=== PATIENT | female | born 1990 | race African-American/Black ===

== ENCOUNTER 2017-08-11 00:15 | Emergency (ER) | payer MEDICAID ==
[~2017-08-11] VITALS: Ht 172.7 cm; Wt 95.3 kg
[2017-08-11 00:25] VITALS: BP 130/82
[2017-08-11] MEDS ORDERED: Morphine Sulfate 4mg/ml Inj IM ONE (00:45)
--- NOTE | 2017-08-11 00:48 | Emergency Room Report ---
History of Present Illness General Chief Complaint: Lower Extremity Injury Source: Patient Present Illness HPI 26-year-old female, presenting with right ankle pain, fell and twisted it while rollerskating. No head trauma no LOC. Complaining of pain to the medial ankle Allergies: Coded Allergies: No Known Allergies (Unverified , 08/11/17) Patient History Past Medical History: see triage record Past Surgical History: none Pertinent Family History: none Last Menstrual Period: jul 08 Now: No Reviewed Nursing Documentation: PMH: Agreed, PSxH: Agreed Nursing Documentation-PMH Past Medical History: No Stated History Review of Systems All Other Systems: negative except mentioned in HPI Physical Exam Vital Signs Date Time Temp Pulse Resp B/P (MAP) Pulse Ox O2 Delivery O2 Flow Rate FiO2 08/11/17 00:14 98.8 86 18 127/83 99 Room Air 98.8 Sp02 EP Interpretation: reviewed, normal General Appearance: alert, GCS 15, non-toxic, moderate distress Head: normocephalic, atraumatic Eyes: bilateral eye normal inspection, bilateral eye PERRL, bilateral eye EOMI ENT: normal ENT inspection, normal pharynx, normal voice, moist mucus membranes Neck: normal inspection, full range of motion, supple Respiratory: normal inspection, lungs clear, normal breath sounds, no respiratory distress, no retraction, no wheezing, speaking full sentences, chest symmetrical Cardiovascular #1: normal inspection, regular rate, rhythm, no edema, normal capillary refill Cardiovascular #2: 2+ radial (R), 2+ radial (L) Gastrointestinal: normal inspection, non tender, soft, non-distended, no guarding Musculoskeletal: other - Right ankle swelling, tender palpation, limited range of motion secondary to pain, very tender in the medial malleolus Neurologic: normal inspection, alert, oriented x3, responsive, motor strength/ tone normal, sensory intact, normal gait, speech normal Psychiatric: normal inspection, judgement/insight normal, memory normal Skin: normal inspection, normal color, no rash, warm/dry, well hydrated, normal turgor Procedures Splinting Splinting : Consent: Verbal Location: r ankle Hand-Made Type: plaster Splint: stirrup and posterior leg Pre-Proc Neuro Vasc Exam: normal Post-Proc Neuro Vasc Exam: normal Patient Tolerated: Well Complications: None Medical Decision Making Diagnostic Impression: Primary Impression: Closed fibular fracture ER Course 26-year-old female with right ankle pain DDX: Sprain/strain vs. fracture Plan: Pain control XR ER course: +fib fx noted - posterior leg + stirrup splint applied, before and after neurovascularly intact. dc with crutches Disposition: Patient is to be discharged home Patient instructed to keep splint on at all times, and to follow up with orthopedic surgery in 1 week. Patient educated to rest, ice, and elevate extremity and to avoid vigorous activity. Strict precautions discussed with patient on when to return to the emergency room including increased redness or swelling joints, increased pain/swelling of extremity, fever or chills, which could indicate severe illness. Please note that this Emergency Department Report was dictated using [employer] insertion loom fixer technology software, occasionally this can lead to erroneous entry secondary to interpretation by the dictation equipment. Xray ordered: Right ankle 3 view Indication: Pain EP Interpretation: Yes Interpretation: communiuted non disp fibula fx Impression: communiuted non disp fibula fx Electronically signed by Satya Roman MD Last Vital Signs Date Time Temp Pulse Resp B/P (MAP) Pulse Ox O2 Delivery O2 Flow Rate FiO2 08/11/17 00:37 98.8 08/11/17 00:14 86 18 127/83 99 Room Air Disposition: HOME, SELF-CARE Condition: Improved Scripts Ibuprofen* (MOTRIN*) 600 Mg Tablet 600 MG ORAL Q8H Y for For Pain, #30 TAB 0 Refills Prov: Satya Roman M.D. 08/11/17 Oxycodone/Acetaminophen 5-325* (PERCOCET 5-325 MG TABLET*) 1 Each Tablet 1 TAB ORAL Q6H Y for For Pain, #20 TAB Prov: Satya Roman M.D. 08/11/17 Satya Roman M.D. Aug 11, 2017 00:48
[2017-08-11] MEDS ORDERED: IBUPROFEN600 MG ORAL (01:10)
[2017-08-11] MEDS ORDERED: PERCOCET 5-3251 EACH ORAL (01:10)
[2017-08-11] MEDS ORDERED: oxyCODONE HCL/Acetaminophen 5/325mg ORAL ONE (01:15)
[2017-08-11 01:45] VITALS: BP 128/79
[2017-08-11 02:00] VITALS: BP 128/79
--- NOTE | 2017-08-11 08:51 | Diagnostic Imaging Report ---
Indication: Ankle pain Technique: 3 views of the right ankle Comparison: none Findings: There is an oblique fracture of the distal fibula. This is nondisplaced. There is questionably a fracture of the lateral aspect of the distal tibia on the oblique view, nondisplaced. There is slight widening of the medial ankle mortise. There is mild overlying soft tissue swelling. Impression: Positive for distal fibular fracture Questionable fracture of the lateral tibia Widening of the medial ankle mortise indicative of medial ligamentous injury This agrees with the findings reported by the emergency room physician in the electronic medical record
[2017-08-12] MEDS ORDERED: NORCO 5-325 TA1 EACH ORAL (10:17)
== END 2017-08-11 02:00 | disposition home or self-care (01) ==
LOC: EDBD 00:15 → EMR 00:35
DX: S82.491A Other fracture of shaft of right fibula, initial encounter for closed fracture (principal); X50.1XXA Overexertion from prolonged static or awkward postures, initial encounter; Y93.51 Activity, roller skating (inline) and skateboarding; Y92.9 Unspecified place or not applicable
CPT/HCPCS: 29515; 73610; 96372; 99284; J2270